=== PATIENT | female | born 1975 | race Caucasian/White ===

== ENCOUNTER 2016-12-26 13:29 | Outpatient (CLI) ==
[2016-02-28 12:12] VITALS: BMI 49.8
[2016-12-26 13:52] LABS: HEMATOCRIT 38.9 % (37.0-47.0); HEMOGLOBIN 12.5 g/dl (12.0-16.0); MEAN CORPUSCULAR HEMOGLOBIN 26.3 pg (27.0-31.0); MEAN CORPUSCULAR HGB CONC 32.1 (31.8-35.4); MEAN CORPUSCULAR VOLUME 81.7 fl (81.0-99.0); RED BLOOD COUNT 4.76 10^6/ul (4.20-5.40); WHITE BLOOD COUNT 14.96 K/ul (4.6-10.2)
--- NOTE | 2016-12-26 13:58 | DI ---
EXAM: CHEST FRONTAL AND LATERAL VIEWS HISTORY: Cough. COMPARISON: 02/01/2015 FINDINGS: Heart size and mediastinal contour renal within normal limits. No acute infiltrates. Normal vascularity with no pleural fluid or pneumothorax. The bony thorax has no acute finding. IMPRESSION: No acute process.
== END 2016-12-26 13:30 | disposition home or self-care (01) ==
LOC: LAB 13:29
PROVIDERS: ATTEND Surgery
DX: R05 Cough (principal); R10.9 Unspecified abdominal pain
CPT/HCPCS: 36415; 85027